=== PATIENT | female | born 1945 | race Caucasian/White ===

== ENCOUNTER → 2023-07-18 | Outpatient (CLI) | payer MEDICARE ==
--- NOTE | 2023-07-19 07:23 | US ---
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 GLAND SIZE: Right Lobe: 3.9 x 1.2 x 1.6 cm Overall Parenchyma: homogeneous Left Lobe: 3.0 x 1.0 x 1.0 cm Overall Parenchyma: homogeneous Isthmus Thickness: 0.34 cm NODULES RIGHT: # of nodules measured on right: 1 1. 0.8 X 0.7 x 0.7 cm, mid mid, solid or almost completely solid, isoechoic nodule, which is wider than tall, with smooth margins, without echogenic foci. LEFT: # of nodules measured on left: 0 ISTHMUS: # of nodules measured in the isthmus: 0 Lymph node found on left side measuring 1.6 x 0.7 x 0.9cm IMPRESSION: Subcentimeter T3 nodule. Mildly Suspicious: FNA if ? 2.5 cm; Follow if ? 1.5 cm at 1, 3, and 5 y
== END | disposition home or self-care (01) ==
LOC: RADUSWWP 15:58
PROVIDERS: ATTEND Internal Medicine Endocrinology, Diabetes & Metabolism
DX: E04.1 Nontoxic single thyroid nodule (principal)
CPT/HCPCS: 76536